=== PATIENT | female | born 1950 | race Caucasian/White ===

== ENCOUNTER 2023-06-17 18:29 | Emergency (ER) | payer OTHER, BC ==
[2023-06-17 18:50] VITALS: TEMP 99.1; BMI 26.5
[2023-06-17 20:47] VITALS: BP 108/67; PULSE 94; RESP 18
== END 2023-06-17 21:33 | disposition home or self-care (01) ==
LOC: FER 18:29
PROC: 2W3RX1Z Immobilization of Left Lower Leg using Splint (ICD-10-PCS; principal; 2023-06-17)
DX: M79.672 Pain in left foot (principal); R22.42 Localized swelling, mass and lump, left lower limb; S82.892A Other fracture of left lower leg, initial encounter for closed fracture; W19.XXXA Unspecified fall, initial encounter; Y93.01 Activity, walking, marching and hiking
CPT/HCPCS: 73610-TC-LT-FY; 73630-TC-LT; 99283-25